=== PATIENT | female | born 1950 | race Caucasian/White ===

== ENCOUNTER 2017-05-15 09:10 | Inpatient (IN) | payer OTHER ==
--- NOTE | 2017-05-15 09:11 | PDOC ---
History of Present Illness - General Chief Complaint: Vomiting/Diarrhea Stated Complaint: ABD PAIN, DIARRHEA, VOMITING Time Seen by Provider: 05/15/17 09:11 History Source: Patient Exam Limitations: No Limitations - History of Present Illness Travel History: No Initial Comments: 05/15/17 09:23 This patient is a 66-year-old female with a prior history of hypertension who presents to the emergency department with abdominal pain, nausea, vomiting, diarrhea. Patient states she ate fish from [employer] at approximately 3 PM. Her granddaughter also had that same meal. She awoke at 11 PM with abdominal pain, vomiting, diarrhea. She estimates that she vomited approximately 15 times, and had diarrhea approximately 7-8 times. She noticed no blood, no mucus in the diarrhea. No blood, no bile in the emesis. She has abdominal pain which she is unable to described, but states it is located throughout her abdomen. Her pain is 9/10, it is constant, no radiation, no alleviating factors. Patient states she had a difficult time finding a comfortable position to lay in. PMH: HTN, Osteoporosis, Thyroid growth (being worked up) PSH: Hysterectomy Meds: Fosamax, Norvasc ALL: NKDA Social: denies alcohol, drug, cigarette us GENERAL/CONSTITUTIONAL: No: fever, chills, weakness, loss of appetite. HEAD, EYES, EARS, NOSE AND THROAT: No: change in vision, ear pain, discharge, sore throat, throat swelling. CARDIOVASCULAR: No: chest pain, lightheadedness, palpitations, syncope RESPIRATORY: No: cough, shortness of breath, wheezing, hemoptysis, stridor. GASTROINTESTINAL: Yes: nausea, vomiting, diarrhea, abdominal pain No: rectal bleeding GENITOURINARY: No: dysuria, hematuria, frequency, urgency, flank pain. MUSCULOSKELETAL: No: back pain, neck pain, joint pain, muscle swelling or pain SKIN: No: lesions, pallor, rash or easy bruising. NEUROLOGIC: No: headache, vertigo, paresthesias, weakness ENDOCRINE: No: unexplained weight gain or loss HEMATOLOGIC/LYMPHATIC: No: anemia, easy bleeding, swelling nodes. GENERAL: The patient is in no acute distress. HEAD: Normal with no signs of trauma. EYES: PERRLA, EOMI, sclera anicteric, conjunctiva clear. ENT: Ears normal, nares patent, oropharynx clear without exudates. Moist mucous membranes. NECK: Normal range of motion, supple without lymphadenopathy, JVD, or masses. LUNGS: Breath sounds equal, clear to auscultation bilaterally. No wheezes, and no crackles. HEART: Tachycardiac, normal S1 and S2 without murmur, rub or gallop. ABDOMEN: Soft, distended, ttp RUQ and epigastrium, voluntary guarding, no rebound EXTREMITIES: Normal range of motion, no edema. No clubbing or cyanosis. No erythema, or tenderness. NEUROLOGICAL: Cranial nerves II through XII grossly intact. Normal speech. No focal neurological deficits. MUSCULOSKELETAL: Back non-tender to palpation, no CVA tenderness SKIN: Warm, Dry, normal turgor, no rashes or lesions noted. Past History - Past Medical History Allergies/Adverse Reactions: Allergies Allergy/AdvReac Type Severity Reaction Status Date / Time No Known Allergies Allergy Verified 05/15/17 09:11 Home Medications: Ambulatory Orders Alendronate Na [Fosamax] 70 mg PO Q7D 05/15/17 Amlodipine Besylate 10 mg PO DAILY 05/15/17 Multivitamin [One Daily] 1 each PO DAILY 05/15/17 HTN: Yes - Psycho/Social/Smoking Cessation Hx Suicidal Ideation: No Smoking History: Never smoked Hx Alcohol Use: No Drug/Substance Use Hx: No Heart Score/ECG Review #1 ECG reviewed & interpreted by me at: 12:59 General ECG Interpretation: Sinus Rhythm, Normal Rate, Normal Intervals, No acute ischemic changes ED Treatment Course - LABORATORY CBC & Chemistry Diagram: 05/15/17 09:34 05/15/17 09:34 Medical Decision Making - Medical Decision Making 05/15/17 09:53 Pt presents with low grade fever, tachycardia, vomiting, diarrhea Abdominal exam: ttp RUQ, epigastrium, right middle abd Will do: Labs UA Hydrate, Zofran Morphine CT abd and pelvis Will re assess 05/15/17 10:05 Laboratory Tests 05/15/17 09:34 Urine Blood 2+ H Urine Nitrite Negative Ur Leukocyte Esterase Trace H 05/15/17 10:31 Laboratory Tests 05/15/17 05/15/17 09:34 09:34 WBC 9.6 Hgb 13.0 Hct 37.7 Plt Count 334 Neutrophils % 84.7 H Sodium 133 L Potassium 3.7 Chloride 96 L Carbon Dioxide 27 BUN 15 Creatinine 0.9 Random Glucose 160 H Total Bilirubin 0.7 AST 26 ALT 22 Total Amylase 88 Lipase 31 05/15/17 12:07 CT: acute cholecystitis 05/15/17 12:42 Case reviewed with Hospitalist Case 05/15/17 13:[address] Keane Clinical Impression: Acute Cholecystitis 05/15/17 13:28 *DC/Admit/Observation/Transfer Diagnosis at time of Disposition: Acute cholecystitis - Discharge Dispostion Condition at time of disposition: Stable Admit: Yes
[2017-05-15] MEDS ORDERED: morphine CARPU-JECT 4 MG/1 ML DISP.SYRIN IVPUSH ONE (09:21)
[2017-05-15] MEDS ORDERED: ONDANSETRON 4 MG/2 ML VIAL IVPUSH ONE (09:21)
[2017-05-15] MEDS ORDERED: SODIUM CHLORIDE 1,000 ML IV STA (09:21)
[2017-05-15] MEDS ORDERED: HYOSCYAMINE SULFATE 0.125 MG TABLET PO ONE (09:23)
[2017-05-15] MEDS ORDERED: HYOSCYAMINE SULFATE 0.125 MG *ODT ONE (09:41)
[2017-05-15] MEDS ORDERED: morphine CARPU-JECT 4 MG/1 ML DISP.SYRIN ONE (09:41)
[2017-05-15] MEDS ORDERED: ONDANSETRON 4 MG/2 ML VIAL ONE (09:41)
[2017-05-15 09:44] LABS: URINE APPEARANCE Clear; URINE BILIRUBIN Negative (NEGATIVE); URINE GLUCOSE (UA) Negative (NEGATIVE); URINE KETONE Negative (NEGATIVE); URINE NITRITE Negative (NEGATIVE); URINE UROBILINOGEN 0.2 (0.2-1.0)
[2017-05-15 10:01] LABS: URINE BLOOD 2+ (NEGATIVE); URINE COLOR YELLOW; URINE LEUK ESTERASE TRACE (NEGATIVE); URINE PROTEIN 2+ (NEGATIVE)
[2017-05-15 10:02] LABS: RDW 12.2 % (11.6-15.6)
[2017-05-15 10:07] LABS: BASOPHIL 1.1 % (0-2.0); EOSINOPHIL 0.1 % (0-4.5); MCH 29.9 pg (25.7-33.7); MCHC 34.5 g/dl (32.0-36.0); MEAN CELL VOLUME 86.9 fl (80-96); MEAN PLT VOLUME 7.8 fl (7.5-11.1); NEUTROPHILS 84.7 % (42.8-82.8); PLATELET COUNT 334 K/MM3 (134-434); WHITE BLOOD COUNT 9.6 K/mm3 (4.0-10.8)
[2017-05-15 10:15] LABS: ALBUMIN 4.1 g/dl (3.5-5.0); ALK PHOS 57 U/L (32-92); AMYLASE 88 U/L (25-125); ANION GAP 10 (8-16); BILIRUBIN,TOTAL 0.7 mg/dl (0.2-1.0); CO2 27 mmol/L (22-28); CREATININE 0.9 mg/dl (0.6-1.3); GLUCOSE,RANDOM 160 mg/dl (74-106); SGOT/AST 26 U/L (10-42); SGPT/ALT 22 U/L (10-40); TOT PROT 7.8 g/dl (6.4-8.3)
[2017-05-15] MEDS ORDERED: PIPERACILLIN/TAZOB 3.375 GM/50 ML PRE-DOCKED IVPB ONE (12:23)
[2017-05-15] MEDS ORDERED: PIPERACILLIN/TAZOBACTAM 3.375 GM VIAL IVPB ONE (12:33)
--- NOTE | 2017-05-15 13:38 | HP ---
CHIEF COMPLAINT: abdominal pain/nausea/vomiting. PCP: Queta HISTORY OF PRESENT ILLNESS: Patient is a 66 y/o female with a past medical history of hypertension, cholelithasis, and osteoporosis. Patient reports yesterday, 05/14/17 at 2300 she developed nausea, vomiting, and sharp abdominal pain. She attributed her symptoms to fish that she ate for dinner. However, symptoms continued throughout the morning and the abdominal pain worsened and she sought evaluation in the emergency department. Patient does report a history of gallstones in the past but has yet to follow up with the surgeon. ER course was notable for: (1) ct scan of abd/pelvis, distended gallbladder with pericholecystic fluid, suspicious for acute choleyctitis. (2) ultrasound of abd finding suggestive of acute cholecysitis, overly distended gallbladder (3) tmax 99.1 Recent Travel: none PAST MEDICAL HISTORY: htn, cholelithasis PAST SURGICAL HISTORY: hysterectomy Social History: employed, resides at home Smoking:none Alcohol:none Drugs: none Family History: son lymphoma, daughter SLE Allergies No Known Allergies Allergy (Verified 05/15/17 09:11) HOME MEDICATIONS: Home Medications Medication Instructions Recorded Alendronate Na [Fosamax] 70 mg PO Q7D 05/15/17 Amlodipine Besylate 10 mg PO DAILY 05/15/17 Multivitamin [One Daily] 1 each PO DAILY 05/15/17 REVIEW OF SYSTEMS CONSTITUTIONAL: Absent: fever, chills, diaphoresis, generalized weakness, malaise, loss of appetite, weight change HEENT: Absent: rhinorrhea, nasal congestion, throat pain, throat swelling, difficulty swallowing, mouth swelling, ear pain, eye pain, visual changes CARDIOVASCULAR: Absent: chest pain, syncope, palpitations, irregular heart rate, lightheadedness , peripheral edema RESPIRATORY: Absent: cough, shortness of breath, dyspnea with exertion, orthopnea, wheezing, stridor, hemoptysis GASTROINTESTINAL: present: abdominal pain, nausea, vomiting Absent: abdominal distension, diarrhea, constipation, melena, hematochezia GENITOURINARY: Absent: dysuria, frequency, urgency, hesitancy, hematuria, flank pain, genital pain MUSCULOSKELETAL: Absent: myalgia, arthralgia, joint swelling, back pain, neck pain SKIN: Absent: rash, itching, pallor HEMATOLOGIC/IMMUNOLOGIC: Absent: easy bleeding, easy bruising, lymphadenopathy, frequent infections ENDOCRINE: Absent: unexplained weight gain, unexplained weight loss, heat intolerance, cold intolerance NEUROLOGIC: Absent: headache, focal weakness or paresthesias, dizziness, unsteady gait, seizure, mental status changes, bladder or bowel incontinence PSYCHIATRIC: Absent: anxiety, depression, suicidal or homicidal ideation, hallucinations. PHYSICAL EXAMINATION Vital Signs - 24 hr 05/15/17 09:10 Temperature 99.1 F Pulse Rate 106 H Respiratory 20 Rate Blood Pressure 162/101 O2 Sat by Pulse 97 Oximetry (%) GENERAL: Awake, alert, and fully oriented, in no acute distress. HEAD: Normal with no signs of trauma. EYES: Pupils equal, round and reactive to light, extraocular movements intact, sclera anicteric, conjunctiva clear. No lid lag. EARS, NOSE, THROAT: Ears normal, nares patent, oropharynx clear without exudates. dry mucous membranes. NECK: Normal range of motion, supple without lymphadenopathy, JVD, or masses. LUNGS: Breath sounds equal, clear to auscultation bilaterally. No wheezes, and no crackles. No accessory muscle use. HEART: Regular rate and rhythm, normal S1 and S2 without murmur, rub or gallop. ABDOMEN: Soft, + salinas's sign, not distended, normoactive bowel sounds, + right upper quadrant guarding, no rebound, no masses. No hepatomegaly or splenomegaly. MUSCULOSKELETAL: Normal range of motion at all joints. No bony deformities or tenderness. No CVA tenderness. UPPER EXTREMITIES: 2+ pulses, warm, well-perfused. No cyanosis. No clubbing. No peripheral edema. LOWER EXTREMITIES: 2+ pulses, warm, well-perfused. No calf tenderness. No peripheral edema. NEUROLOGICAL: Cranial nerves II-XII intact. Normal speech. Normal gait. PSYCHIATRIC: Cooperative. Good eye contact. Appropriate mood and affect. SKIN: Warm, dry, normal turgor, no rashes or lesions noted, normal capillary refill. Laboratory Results - last 24 hr 05/15/17 05/15/17 05/15/17 09:34 09:34 09:34 WBC 9.6 RBC 4.34 Hgb 13.0 Hct 37.7 MCV 86.9 MCH 29.9 MCHC 34.5 RDW 12.2 Plt Count 334 MPV 7.8 Neutrophils % 84.7 H Lymphocytes % 9.3 Monocytes % 4.8 Eosinophils % 0.1 Basophils % 1.1 Sodium 133 L Potassium 3.7 Chloride 96 L Carbon Dioxide 27 Anion Gap 10 BUN 15 Creatinine 0.9 Creat Clearance w eGFR > 60 Random Glucose 160 H Calcium 9.0 Total Bilirubin 0.7 AST 26 ALT 22 Alkaline Phosphatase 57 Total Protein 7.8 Albumin 4.1 Total Amylase 88 Lipase 31 Urine Color Yellow Urine Appearance Clear Urine pH 6.0 Ur Specific [place] 1.025 Urine Protein 2+ H Urine Glucose (UA) Negative Urine Ketones Negative Urine Blood 2+ H Urine Nitrite Negative Urine Bilirubin Negative Urine Urobilinogen 0.2 Ur Leukocyte Esterase Trace H ASSESSMENT/PLAN: 1) acute choleystitis - ct scan and ultrasound of abd reviewed, case discussed with Dr Keane, surgoen , pt is pending OR today - keep npo-->ivf - zosyn given in ED, continue rocephin and flagyl 2) hypertension - b/p noted to be elevated, repeat b/p 137/78, likely secondary to pain - pt did not take her AM medications, norvasc 10mg x 1 ordered 3) osteporosis - continue fosamax 4) thyroid mass - hx of mass, has achedule appointment to follow up with ent for fine needle biopsy next week as per patient f/e/n - npo pending or-->1/2ns w/20meq kci @100ml/hr - replete electrolytes prn ppx - hold ac pending or - pepcid - scd medically optimized for surgery dispo: requires inpatient admission Visit type - Emergency Visit Emergency Visit: Yes ED Registration Date: 05/15/17 Care time: The patient presented to the Emergency Department on the above date and was hospitalized for further evaluation of their emergent condition. - New Patient This patient is new to me today: No - Critical Care Critical Care patient: No
[2017-05-15] MEDS ORDERED: HYDROmorphone HCL CARPU-JECT 1 MG/1 ML DISP.SYRIN IVPB PRN (13:55)
[2017-05-15] MEDS ORDERED: ONDANSETRON 4 MG/2 ML VIAL IVPB PRN ×2 (13:56→14:55)
[2017-05-15] MEDS ORDERED: ACETAMINOPHEN 1000 MG/100 ML VIAL (NON FORMULARY) IVPB ONE ×2 (14:00→18:47)
[2017-05-15] MEDS ORDERED: amLODIPine BESYLATE 10 MG TABLET (FP) PO ONE (14:00)
[2017-05-15] MEDS ORDERED: SODIUM CHLORIDE 0.45%/POT 1,000 ML IV SCH ×2 (14:00→14:15)
[2017-05-15] MEDS ORDERED: FAMOTIDINE 20 MG/50 ML IVPB 50 ML IVPB SCH (14:00)
[2017-05-15] MEDS ORDERED: ACETAMINOPHEN INJECTION 100 ML IVPB ONE (14:05)
[2017-05-15] MEDS ORDERED: amLODIPine BESYLATE 5 MG TABLET (FP) ONE (14:05)
[2017-05-15 14:33] LABS: INR 1.08 (0.82-1.09); PROTHROMBIN TIME (PATIENT) 12.1 SEC (10.2-13.0)
[2017-05-15] MEDS ORDERED: FAMOTIDINE 20 MG/50 ML IVPB 50 ML IVPB ONE (14:44)
[2017-05-15 15:26] LABS: URINE BACTERIA FEW /hpf (NEGATIVE)
[2017-05-15] MEDS ORDERED: MIDAZOLAM HCL 2 MG/2 ML SINGLE DOSE VIAL ONE (15:48)
[2017-05-15] MEDS ORDERED: PROPOFOL 20 ML ONE (16:07)
[2017-05-15] MEDS ORDERED: SUCCINYLCHOLINE CHLORIDE 200 MG/10 ML VIAL ONE (16:08)
[2017-05-15] MEDS ORDERED: ROCURONIUM BROMIDE 50 MG/5 ML VIAL ONE (16:08)
[2017-05-15] MEDS ORDERED: oxyCODONE HCL 5 MG TABLET PO PRN (16:16)
[2017-05-15] MEDS ORDERED: PROMETHAZINE HCL 25 MG/1 ML VIAL IVPUSH PRN (16:16)
--- NOTE | 2017-05-15 16:24 | EKG ---
Test Reason : Blood Pressure : / mmHG Vent. Rate : 073 BPM Atrial Rate : 073 BPM P-R Int : 154 ms QRS Dur : 080 ms QT Int : 424 ms P-R-T Axes : 037 044 034 degrees QTc Int : 467 ms NORMAL SINUS RHYTHM NORMAL ECG NO PREVIOUS ECGS AVAILABLE Confirmed by PADDY WHITE MD ([id number]) on 05/15/2017 4:24:17 PM Referred By: DR. ROSALES Confirmed By:PADDY WHITE MD
[2017-05-15 16:52] VITALS: BMI 26.2
[2017-05-15] MEDS ORDERED: HYDROmorphone HCL/PF 1 MG/ML VIAL (FOR PYXIS CHARGING ONLY) ONE (17:38)
[2017-05-15] MEDS ORDERED: NEOSTIGMINE METHYLSULFATE 0.5 MG/ML - 10 ML MDV ONE (17:44)
[2017-05-15] MEDS ORDERED: METRONIDAZOLE 500 MG PREMIXED 100 ML IVPB SCH (18:00)
[2017-05-15] MEDS ORDERED: CEFTRIAXONE 50 ML IVPB ONE (18:00)
[2017-05-15] MEDS ORDERED: CEFTRIAXONE 1 GM in DEXTROSE 5%-WATER - 50 ML IVPB ONE (18:00)
[2017-05-15] MEDS ORDERED: BUPIVACAINE HCL 0.5% 250 MG/50 ML VIAL IJ ONE (18:30)
--- NOTE | 2017-05-15 18:45 | OP ---
Operative Note - Note: Operative Date: 05/15/17 Pre-Operative Diagnosis: Acute cholecystitis/Cholelithiasis Operation: Lap [place] Post-Operative Diagnosis: Same as Pre-op Surgeon: Waqar Keane Assistant Professor Of Life Sciences: Akhil Solomon Anesthesia: General Specimens Removed: Gall bladder Fluid Volume Replaced (mls): 1,000 Operative Report Dictated: Yes
--- NOTE | 2017-05-15 18:46 | SURG ---
Surgery Stock Pitcher Note Stock Pitcher: Akhil Solomon PA-C Date of Service: 05/15/17 Diagnosis: Acute cholecystitis/Cholelithiasis Procedure: Laparoscopic cholecystectomy I was present for the entirety of the operative procedure. For further detail, please refer to operative report. Visit type - Case Type Case Type: ED Admission - Emergency Emergency Visit: Yes ED Registration Date: 05/15/17 Care time: The patient presented to the Emergency Department on the above date and was hospitalized for further evaluation of their emergent condition. - New patient This patient is new to me today: Yes Date on this admission: 05/15/17
[2017-05-15] MEDS: METRONIDAZOLE 500 MG PREMIXED 100 ML IVPB SCH (22:00)
[2017-05-16] MEDS: FAMOTIDINE 20 MG/50 ML IVPB 50 ML IVPB SCH ×2 (00:01→09:27)
[2017-05-16] MEDS: METRONIDAZOLE 500 MG PREMIXED 100 ML IVPB SCH ×2 (02:39→09:27)
[2017-05-16 06:07] VITALS: PULSE 88
--- NOTE | 2017-05-16 08:02 | PN ---
Progress Note (short form) - Note Progress Note: Attending Surgeon POD #1 s/p sheldon fox Feels better than pre-op; ambulated; tolerated liquids post op and this AM; pain controlled; voiding VSS AF abdomen-soft; port site dressings c/d/i;exam o/w unremarkable IMP: doing well PLAN: advance diet; if tolerated may be d/c'ed to office f/u 7- 10 days post op. Waqar Keane MD FACS
--- NOTE | 2017-05-16 08:07 | CONSULT ---
- Consultation REQUESTING PROVIDER: Abril Andino NON MORSE INTERCEPT TECHNICIAN CONSULT REQUEST: We have been asked to surgically evaluate this patient for ( specify). PCP HISTORY OF PRESENT ILLNESS: Sudden onset RUQ pain w/ n/ v/ diarrhea in a patient w/ known gallbladder disease; she came to the ER for evaluation. PMHx: htn/thyroid disease PSHx: WILLIAN Home Medications Medication Instructions Recorded Alendronate Na [Fosamax] 70 mg PO Q7D 05/15/17 Amlodipine Besylate 10 mg PO DAILY 05/15/17 Multivitamin [One Daily] 1 each PO DAILY 05/15/17 Allergies Allergy/AdvReac Type Severity Reaction Status Date / Time No Known Allergies Allergy Verified 05/15/17 09:11 PHYSICAL EXAM: GENERAL: Awake, alert, and fully oriented, in acute distress. HEAD: Normal with no signs of trauma. EYES: sclera anicteric, conjunctiva clear. ABDOMEN: Soft, tender RUQ, not distended, normoactive bowel sounds, positive guarding, positive rebound, no masses. No organomegaly; no hernias. MUSCULOSKELETAL: Normal ROM at all joints. No bony deformities or tenderness. No CVA tenderness. UPPER EXTREMITIES: 2+ pulses, warm, well-perfused. No cyanosis. Cap refill <2 seconds. No peripheral edema. LOWER EXTREMITIES: 2+ pulses, warm, well-perfused. No calf tenderness. No peripheral edema. NEUROLOGICAL: Normal speech, gait not observed. PSYCH: Cooperative. Good eye contact. Appropriate mood and affect. SKIN: Warm, dry, normal turgor, no rashes or lesions noted. Vital Signs Temperature 99.6 F 05/16/17 06:06 Pulse Rate 88 05/16/17 06:06 Respiratory Rate 18 05/16/17 06:06 Blood Pressure 122/62 05/16/17 06:06 O2 Sat by Pulse Oximetry (%) 94 L 05/16/17 06:06 Lab Results WBC 9.6 K/mm3 (4.0-10.8) 05/15/17 09:34 RBC 4.34 M/mm3 (3.60-5.2) 05/15/17 09:34 Hgb 13.0 GM/dl (10.7-15.3) 05/15/17 09:34 Hct 37.7 % (32.4-45.2) 05/15/17 09:34 MCV 86.9 fl (80-96) 05/15/17 09:34 MCHC 34.5 g/dl (32.0-36.0) 05/15/17 09:34 RDW 12.2 % (11.6-15.6) 05/15/17 09:34 Plt Count 334 K/MM3 (134-434) 05/15/17 09:34 Sodium 133 mmol/L (136-145) L 05/15/17 09:34 Potassium 3.7 mmol/L (3.5-5.1) 05/15/17 09:34 Chloride 96 mmol/L (98-107) L 05/15/17 09:34 Carbon Dioxide 27 mmol/L (22-28) 05/15/17 09:34 Anion Gap 10 (8-16) 05/15/17 09:34 BUN 15 mg/dl (7-18) 05/15/17 09:34 Creatinine 0.9 mg/dl (0.6-1.3) 05/15/17 09:34 Random Glucose 160 mg/dl (74-106) H 05/15/17 09:34 Calcium 9.0 mg/dl (8.4-10.2) 05/15/17 09:34 Blood Type AB POSITIVE 05/15/17 15:31 Antibody Screen Negative 05/15/17 14:05 INR 1.08 (0.82-1.09) 05/15/17 14:05 imaging w/u reviewed IMP: acute cholecystitis PLAN: Lap ruddy possible open; r/b/t/ d/w patient in Greek and Thai; informed consent obtained. Waqar Keane MD FACS Visit type - Case Type Case Type: ED Admission - Emergency Emergency Visit: Yes ED Registration Date: 05/15/17 Care time: The patient presented to the Emergency Department on the above date and was hospitalized for further evaluation of their emergent condition.
[2017-05-16] MEDS ORDERED: PT OWN MED DRAWER 7, Y5N ONE (09:53)
[2017-05-16] MEDS ORDERED: CEFTRIAXONE 50 ML IVPB SCH ×3 (10:00)
[2017-05-16] MEDS ORDERED: MULTIVITAMINS (DAILY MVI) TABLET (FP) PO SCH ×2 (10:00)
[2017-05-16] MEDS ORDERED: amLODIPine BESYLATE 10 MG TABLET (FP) PO SCH ×2 (10:00)
[2017-05-16] MEDS ORDERED: FAMOTIDINE 20 MG/50 ML IVPB 50 ML IVPB SCH (10:00)
[2017-05-16] MEDS ORDERED: CEFTRIAXONE 1 GM in DEXTROSE 5%-WATER - 50 ML IVPB SCH (10:00)
--- NOTE | 2017-05-16 14:19 | DS ---
Physical Exam: SUBJECTIVE: Patient seen and examined OBJECTIVE: Vital Signs Period Temp Pulse Resp BP Sys/Loera Pulse Ox Last 24 Hr 98.7 F-100 F 66-88 11-19 99-146/49-69 94-97 PHYSICAL EXAM GENERAL: The patient is awake, alert, and fully oriented, in no acute distress. HEAD: Normal with no signs of trauma. EYES: PERRL, extraocular movements intact, sclera anicteric, conjunctiva clear. ENT: Ears normal, nares patent, oropharynx clear without exudates, moist mucous membranes. NECK: Trachea midline, full range of motion, supple. LUNGS: Breath sounds equal, clear to auscultation bilaterally, no wheezes, no crackles, no accessory muscle use. HEART: Regular rate and rhythm, S1, S2 without murmur, rub or gallop. ABDOMEN: Soft, nontender, nondistended, normoactive bowel sounds, no guarding, no rebound, no hepatosplenomegaly, no masses. EXTREMITIES: 2+ pulses, warm, well-perfused, no edema. NEUROLOGICAL: Cranial nerves II through XII grossly intact. Normal speech, gait not observed. PSYCH: Normal mood, normal affect. SKIN: Warm, dry, normal turgor, no rashes or lesions noted. LABS HOSPITAL COURSE: Date of Admission:05/15/17 Date of Discharge: 05/16/17 Minutes to complete discharge: 45 Discharge Summary Reason For Visit: ABD PAIN, DIARRHEA, VOMITING Current Active Problems Acute cholecystitis (Acute) Procedures: Principal: Laproscopic Cholecystectomy Condition: Stable - Instructions Diet, Activity, Other Instructions: Drink plenty of fluids. Take acetaminophen for pain as directed by mixed livestock farm worker's instructions. Make an appointment with Dr. Keane to be evaluated in his office within 10 days. Return to ER for fevers, drainage, severe abdominal pain, nausea, vomiting or any other concerns. Referrals: Waqar Keane MD [Staff Physician] - Disposition: HOME - Home Medications Comprehensive Discharge Medication List: Ambulatory Orders Alendronate Na [Fosamax] 70 mg PO Q7D 05/15/17 Amlodipine Besylate 10 mg PO DAILY 05/15/17 Multivitamin [One Daily] 1 each PO DAILY 05/15/17 This patient is new to me today: Yes Date on this admission: 05/16/17 Critical Care patient: No - Discharge Referral Referred to [facility] No
[2017-05-16 14:20] VITALS: BP 120/58; TEMP 98.5
--- NOTE | 2017-05-19 13:32 | PATH ---
Surgical Pathology Report Patient Name: JENIFFER SCHWARTZ [facility]. Rec. #: [id number] /Age/Gender: 1950 (Age: 66) / F Account: [id number] Location: [facility] Taken: 05/15/2017 Received: 05/15/2017 Reported: 05/19/2017 Physicians: Waqar Keane MD Specimen(s) Received GALLBLADDER Clinical History Abdominal pain, diarrhea, vomiting Final Diagnosis GALLBLADDER, CHOLECYSTECTOMY: ACUTE AND CHRONIC CHOLECYSTITIS AND CHOLELITHIASIS. Electronically Signed Cisco Vicente M.D. Gross Description Received in formalin labelled "gallbladder" is a 9.5 x 3.8 x 2.7 cm gallbladder which has been partially previously opened. The gallbladder has a ignacio and mcleod serosa, a 0.1-0.2 cm thick wall, and a velvety to flat and green bile stained mucosa. Within the lumen of the gallbladder are 3 green and yellow calculi each of which is between 2.0 and 2.4 cm in greatest dimension. A pericystic lymph node is not identified. No focal lesions are identified. Motor Man sections are submitted in one cassette. [facility]/05/18/2017 [facility]/05/18/2017
--- NOTE | 2017-05-19 16:51 | OP ---
DATE OF OPERATION: 05/15/2017 PREOPERATIVE DIAGNOSES: Acute cholecystitis, cholelithiasis. POSTOPERATIVE DIAGNOSES: Acute cholecystitis, cholelithiasis. PROCEDURE: Laparoscopic cholecystectomy. SURGEON: Waqar Keane MD TUBE KNITTER: Akhil Solomon PA-C ANESTHESIA: General. OPERATIVE FINDINGS: There was acute cholecystitis and cholelithiasis. The rest of the findings were unremarkable. DESCRIPTION OF PROCEDURE: The patient was placed on the operating table in the supine position. After the induction of general anesthesia, the patient's abdomen was prepped with ChloraPrep and draped in sterile fashion. A timeout was taken, and pneumoperitoneum was established at the umbilicus using a Veress needle to a pressure of 15 mmHg. A 5-mm port was then placed and laparoscopy carried out, and the previously noted findings were observed. An additional subxiphoid 12-mm port and 2 lateral 5-mm ports were placed, and the previously noted findings again were observed. Due to acute distention and inflammation of the gallbladder, it was decompressed using an aspiration needle. The gallbladder was then placed on cephalad and lateral traction, and dissection was begun in the triangle of Calot where the visceral peritoneum was opened medial and laterally using electrocautery. The cystic duct was identified and dissected proximally and distally for length as was the artery which was medial to it. A critical view of safety was taken, and then, the duct and artery were sequentially divided using EndoShears after the placement of 2 large hemoclips distally and proximally. The gallbladder was then removed from the liver bed in a retrograde fashion using electrocautery. The gallbladder was removed from the edge of the liver, placed in a specimen retrieval bag, and brought out through the subxiphoid port. Pneumoperitoneum was re-established. Hemostasis was checked for and noted to be good, and copious irrigation with normal saline was carried out. Again, hemostasis was verified, and then, all ports were removed under laparoscopic vision without evidence of bleeding from the port sites. The pneumoperitoneum was evacuated, and each port site was infiltrated with 0.5% Marcaine and closed with 3-0 and 4-0 Biosyn. Steri-Strips and Band-Aid dressings were placed and the procedure terminated at this point and the patient aroused from general anesthesia and transferred to the postanesthesia care unit in stable condition, awake and alert. ESTIMATED BLOOD LOSS: 10 mL. REPLACEMENTS: Crystalloid. DRAINS: None. SPECIMEN: Gallbladder and contents to Pathology. I, Waqar Keane MD, was physically present in the operating room from the time the patient was placed on the operating table until she was transferred to the postanesthesia care unit in my accompaniment. MD DRALENE Quinn/[id number]
== END 2017-05-16 16:10 | disposition home or self-care (01) | DRG 419 ==
LOC: FER 09:10 → UNDOADMIN 13:25 → FM/S 13:25 → FER 14:15 → FASU 14:53 → FM/S 14:54 → FASU 15:53
PROVIDERS: ADMIT Surgery; ATTEND Surgery
PROC: 0FT44ZZ Resection of Gallbladder, Percutaneous Endoscopic Approach (ICD-10-PCS; principal; 2017-05-15 17:05)
DX: K80.00 Calculus of gallbladder with acute cholecystitis without obstruction (principal); I10 Essential (primary) hypertension; M81.0 Age-related osteoporosis without current pathological fracture; R22.1 Localized swelling, mass and lump, neck
CPT/HCPCS: 36415; 71010-TC; 74177-TC; 76705-TC; 80053; 81003; 81015; 82150; 83690; 85025; 85610; 86850; 86900; 86901; 87086; 88304-TC; 93005; 94760; 99285-25

== ENCOUNTER 2017-05-17 20:40 | Emergency (ER) | payer OTHER ==
[2017-05-17 20:50] VITALS: TEMP 98.4; BMI 27.1
--- NOTE | 2017-05-17 21:06 | PDOC ---
History of Present Illness - General History Source: Patient Exam Limitations: No Limitations - History of Present Illness Initial Comments: 05/17/17 21:19 The patient is a 66 year old female with a significant past medical history of HTN, and osteoporosis, who presents to the ED with 6x diarrhea and black stool since this morning. She states she was perfectly fine yesterday after having gallbladder surgery two days ago. Patient states she had taken pepto bismol on . Patient denies dizziness, headache, fever, chills, nausea, vomiting. Patient denies prior history of gastrointestinal bleeding. Patient takes baby aspirin everyday. <Oskar Oquendo - Last Filed: 05/17/17 21:24> <Shani Lopez - Last Filed: 05/18/17 06:45> - General Chief Complaint: Diarrhea Stated Complaint: SURGERY ON THURSDAY/BLACK STOOL TODAY Time Seen by Provider: 05/17/17 20:42 Past History <Oskar Oquendo - Last Filed: 05/17/17 21:24> - Past Medical History Anemia: No Asthma: No Cancer: No Cardiac Disorders: No CVA: No COPD: No CHF: No Dementia: No Diabetes: No GI Disorders: No Disorders: No HTN: Yes Hypercholesterolemia: No Liver Disease: No Seizures: No Thyroid Disease: No - Surgical History Abdominal Surgery: No Appendectomy: No Cardiac Surgery: No Cholecystectomy: Yes Lung Surgery: No Neurologic Surgery: No Orthopedic Surgery: No - Psycho/Social/Smoking Cessation Hx Anxiety: No Suicidal Ideation: No Smoking History: Never smoked Have you smoked in the past 12 months: No Information on smoking cessation initiated: No Hx Alcohol Use: No Drug/Substance Use Hx: No Substance Use Type: None Hx Substance Use Treatment: No <Shani Lopez - Last Filed: 05/18/17 06:45> - Past Medical History Allergies/Adverse Reactions: Allergies Allergy/AdvReac Type Severity Reaction Status Date / Time No Known Allergies Allergy Verified 05/17/17 20:44 Home Medications: Ambulatory Orders Alendronate Na [Fosamax] 70 mg PO Q7D 05/15/17 Amlodipine Besylate 10 mg PO DAILY 05/15/17 Multivitamin [One Daily] 1 each PO DAILY 05/15/17 Aspirin [ASA -] 81 mg PO DAILY 05/17/17 Review of Systems - Review of Systems Able to Perform ROS?: Yes Comments:: 05/17/17 21:19 GENERAL/CONSTITUTIONAL: No fever or chills. No weakness. HEAD, EYES, EARS, NOSE AND THROAT: No change in vision. No ear pain or discharge. No sore throat. CARDIOVASCULAR: No chest pain or shortness of breath. RESPIRATORY: No cough, wheezing, or hemoptysis. GASTROINTESTINAL: + black stool. + diarrhea. No nausea, vomiting, constipation. GENITOURINARY: No dysuria, frequency, or change in urination. MUSCULOSKELETAL: No joint or muscle swelling or pain. No neck or back pain. SKIN: No rash NEUROLOGIC: No headache, vertigo, loss of consciousness, or change in strength/ sensation. ENDOCRINE: No increased thirst. No abnormal weight change. HEMATOLOGIC/LYMPHATIC: No anemia, easy bleeding, or history of blood clots. ALLERGIC/IMMUNOLOGIC: No hives or skin allergy. <Oskar Oquendo - Last Filed: 05/17/17 21:24> *Physical Exam - Vital Signs Last Vital Signs Temp Pulse Resp BP Pulse Ox 98.4 F 96 H 16 145/82 95 05/17/17 20:47 05/17/17 20:47 05/17/17 20:47 05/17/17 20:47 05/17/17 20:47 - Physical Exam Comments: 05/17/17 21:20 GENERAL: The patient is awake, alert, and fully oriented, in no acute distress. HEAD:[Normal with no signs of trauma. EYES: Pupils equal, round and reactive to light, extraocular movements intact, sclera anicteric, conjunctiva are pink. EXTREMITIES: Normal range of motion, no edema. ABDOMEN: Abdomen is distended but soft. Surgical incisions appearing to heal normally. Diffuse mild tenderness. Without peritoneal signs. RECTAL: No masses witnessed. Dark brown stool sent for hemoccult NEUROLOGICAL: Normal speech, normal gait. PSYCH: Normal mood, normal affect. SKIN: Warm, Dry, normal turgor, no rashes or lesions noted. <Oskar Oquendo - Last Filed: 05/17/17 21:24> - Vital Signs Last Vital Signs Temp Pulse Resp BP Pulse Ox 98.4 F 96 H 16 145/82 95 05/17/17 20:47 05/17/17 20:47 05/17/17 20:47 05/17/17 20:47 05/17/17 20:47 <Shani Lopez - Last Filed: 05/18/17 06:45> ED Treatment Course - LABORATORY CBC & Chemistry Diagram: 05/17/17 21:30 05/17/17 21:30 <Shani Lopez - Last Filed: 05/18/17 06:45> Progress Note - Progress Note Progress Note: Documentation has been prepared under my direction and personally reviewed by me in its entirety. I attest that this documented accurately reflects all work, treatment, procedures and medical decision making performed by me. <Shani Lopez Last Filed: 05/18/17 06:45> Medical Decision Making - Medical Decision Making As noted above, this 66-year-old woman is 2 days status post laparoscopic cholecystectomy. She notes 6 episodes of black watery stool today. She had no bowel movements after discharge yesterday. She denies nausea/vomiting or significant abdominal pain today. There are no symptoms of lightheadedness or shortness of breath. No previous history of peptic ulcer disease/gastritis or gastrointestinal bleeding. On exam, the patient has mild tachycardia (96/ minute but no hypotension or hypoxia. Lungs are clear and abdominal exam is mildly tender and distended (consistent with 2 days status post laparoscopic procedure) without significant point tenderness or peritoneal signs. Rectal exam was performed and dark brown stool sent for Hemoccult testing: This was negative. Orthostatic vital signs shows mild increase in heart rate with upright position (rising from 90/minute to 96/minute) without change in blood pressure readings. H/H is 12.0/34.5 which is just slightly decreased as compared to preop value Potassium is 3.2 and patient given 40 mEq of K-Dur by mouth Remainder of the laboratory evaluation is essentially normal. Case discussed with patient's surgeon, Dr. Waqar Keane. Patient will be given 500 mL of normal saline bolus and discharged with follow-up with Dr. Keane already scheduled in [address] Keane will call the patient tomorrow. She should return to the emergency room if she notices increasing black stool, blood in her stool or if she experiences lightheadedness/shortness of breath/ increase in abdominal pain <Shani Lopez - Last Filed: 05/18/17 06:45> *DC/Admit/Observation/Transfer - Attestations Scribe Attestion: 05/17/17 21:20 Documentation prepared by Oskar Oquendo, acting as medical collections specialist for Shani Lopez MD. <Oskar Oquendo - Last Filed: 05/17/17 21:24> <Shani Lopez - Last Filed: 05/18/17 06:45> Diagnosis at time of Disposition: Diarrhea Qualifiers: Diarrhea type: unspecified type Qualified Code(s): R19.7 - Diarrhea, unspecified - Discharge Dispostion Disposition: HOME Condition at time of disposition: Stable - Referrals Referrals: Chasity Gibson [Primary Care Provider] - Waqar Keane MD [Staff Physician] - 2 Days - Patient Instructions Printed Discharge Instructions: Diarrhea Additional Instructions: Drink plenty of fluids Continue medications as prescribed Avoid ibuprofen/naproxen Return to ER immediately if you have lightheadedness/chest pain or see blood in your stool Follow-up with Dr. Keane in 48 hours as scheduled
[2017-05-17 21:55] LABS: BASOPHIL 1.4 % (0-2.0); EOSINOPHIL 1.1 % (0-4.5); MCH 30.2 pg (25.7-33.7); MCHC 34.9 g/dl (32.0-36.0); MEAN CELL VOLUME 86.6 fl (80-96); MEAN PLT VOLUME 7.4 fl (7.5-11.1); NEUTROPHILS 63.8 % (42.8-82.8); PLATELET COUNT 276 K/MM3 (134-434); WHITE BLOOD COUNT 6.5 K/mm3 (4.0-10.8)
[2017-05-17 21:59] LABS: INR 1.14 (0.82-1.09); PROTHROMBIN TIME (PATIENT) 12.7 SEC (10.2-13.0)
[2017-05-17 22:03] LABS: ALBUMIN 3.4 g/dl (3.5-5.0); ALK PHOS 49 U/L (32-92); ANION GAP 7 (8-16); BILIRUBIN,TOTAL 0.4 mg/dl (0.2-1.0); CALCIUM 8.5 mg/dl (8.4-10.2); CO2 29 mmol/L (22-28); CREATININE 0.9 mg/dl (0.6-1.3); GLUCOSE,RANDOM 109 mg/dl (74-106); SGOT/AST 39 U/L (10-42); SGPT/ALT 46 U/L (10-40); TOT PROT 6.6 g/dl (6.4-8.3)
[2017-05-17] MEDS ORDERED: POTASSIUM CHLORIDE TABS 20 MEQ TABLET.ER (FP) PO ONE ×2 (22:56→23:00)
[2017-05-17 23:01] LABS: URINE APPEARANCE Clear; URINE BILIRUBIN Negative (NEGATIVE); URINE COLOR YELLOW; URINE GLUCOSE (UA) Negative (NEGATIVE); URINE KETONE Negative (NEGATIVE); URINE LEUK ESTERASE Negative (NEGATIVE); URINE NITRITE Negative (NEGATIVE); URINE PROTEIN Negative (NEGATIVE); URINE UROBILINOGEN 0.2 (0.2-1.0)
[2017-05-17 23:02] LABS: URINE BLOOD NEGATIVE (NEGATIVE)
[2017-05-17 23:17] VITALS: BP 143/50; PULSE 96
[2017-05-17] MEDS ORDERED: SODIUM CHLORIDE 500 ML IV STA (23:25)
== END 2017-05-18 00:19 | disposition home or self-care (01) ==
LOC: FER 20:40
PROC: 3E0337Z Introduction of Electrolytic and Water Balance Substance into Peripheral Vein, Percutaneous Approach (ICD-10-PCS; principal; 2017-05-17)
DX: R19.7 Diarrhea, unspecified (principal); I10 Essential (primary) hypertension
CPT/HCPCS: 36415; 80053; 81003; 82272; 85025; 85610; 99281-25